=== PATIENT | male | born 1995 | race Caucasian/White ===

== ENCOUNTER 2018-02-21 19:35 | Emergency (ER) | payer MEDICARE, MEDICAID ==
[~2018-02-21] VITALS: Ht 188 cm; Wt 59.4 kg
[~2018-02-21 19:35] MED LIST: CLOZ100T PO; GABA300C PO; HALO5AMP2 IM
[2018-02-21 19:53] VITALS: BP 105/75
== END 2018-02-21 20:17 | disposition left against medical advice (07) ==
LOC: ER 19:36
DX: R44.3 Hallucinations, unspecified (principal); Z53.21 Procedure and treatment not carried out due to patient leaving prior to being seen by health care provider

== ENCOUNTER 2018-04-27 20:50 | Emergency (ER) | payer MEDICARE, MEDICAID ==
[~2018-04-27] VITALS: Ht 188 cm; Wt 73.0 kg
[~2018-04-27 20:50] MED LIST changes: +ONDA8TAB9 PO; +PANT-47 PO
[2018-04-27 20:55] VITALS: BP 135/91
[2018-04-27] MEDS ORDERED: LORazepam 2 mg/ml vial IM ONE ×2 (22:15→23:30)
== END 2018-04-27 23:37 | disposition home or self-care (01) ==
LOC: ER 20:51
DX: F20.9 Schizophrenia, unspecified (principal); F41.9 Anxiety disorder, unspecified; J45.909 Unspecified asthma, uncomplicated; F32.9 Major depressive disorder, single episode, unspecified; F12.90 Cannabis use, unspecified, uncomplicated; F17.210 Nicotine dependence, cigarettes, uncomplicated; Z98.890 Other specified postprocedural states; Z79.899 Other long term (current) drug therapy
CPT/HCPCS: 96372; 99284; J2060

== ENCOUNTER 2018-05-09 19:38 | Emergency (ER) | payer MEDICARE, MEDICAID ==
[~2018-05-09] VITALS: Ht 188 cm; Wt 59.7 kg
[2018-05-09 20:41] LABS: BASOPHILS % (AUTO) 0.6 % (0-1); EOSINOPHILS % (AUTO) 0.6 % (0-6); HEMATOCRIT 41.9 % (42.0-52.0); HEMOGLOBIN 14.2 g/dl (14.0-17.9); LYMPHOCYTES # (AUTO) 2.4 X10'3 (1.1-4.8); LYMPHOCYTES % (AUTO) 34.6 % (21-51); MEAN CORPUSCULAR HEMOGLOBIN 30.9 PG (27.0-31.0); MEAN CORPUSCULAR HGB CONC 33.9 % (33.0-36.5); MEAN CORPUSCULAR VOLUME 91.1 FL (78-98); MEAN PLATELET VOLUME 8.8 FL (7.4-10.4); MONOCYTES # (AUTO) 0.7 X10'3 (0-0.9); MONOCYTES % (AUTO) 10.1 % (2-12); NEUTROPHILS # (AUTO) 3.7 X10'3 (1.8-7.7); NEUTROPHILS % (AUTO) 54.1 % (42-75); PLATELET COUNT 252 X10'3 (140-440); RED CELL DISTRIBUTION WIDTH 13.2 % (11.5-14.5); WHITE BLOOD COUNT 6.9 X10'3 (4.5-11.0)
[2018-05-09 20:56] LABS: ALANINE AMINOTRANSFERASE 26 U/L (12-78); ALBUMIN 4.2 G/DL (3.4-5.0); ALBUMIN/GLOBULIN RATIO 1.4 (1.1-1.5); ALKALINE PHOSPHATASE 77 IU/L (46-116); ANION GAP 10 (8-16); ASPARTATE AMINO TRANSFERASE 22 U/L (10-37); BILIRUBIN,TOTAL 0.6 MG/DL (0.1-1.0); BLOOD UREA NITROGEN 18 MG/DL (7-18); BUN/CREATININE RATIO 20.5 (5.4-32.0); CALCIUM 9.2 MG/DL (8.5-10.1); CHLORIDE 104 MMOL/L (99-107); CREATININE 0.88 MG/DL (0.60-1.10); GLUCOSE 110 MG/DL (70-104); POTASSIUM 3.5 MMOL/L (3.5-5.1); SODIUM 141 MMOL/L (135-145); TOTAL CARBON DIOXIDE 26.9 MMOL/L (24-32); TOTAL PROTEIN 7.3 G/DL (6.4-8.2); eGFR > 90 ML/MIN
[2018-05-09 21:06] LABS: ETHANOL < 0.010 GM/DL (0.0-0.010)
[2018-05-09 21:14] LABS: ACETAMINOPHEN < 2.0 UG/ML (10-30)
[2018-05-09 22:34] LABS: URINE AMPHETAMINE SCREEN NEGATIVE (Neg); URINE BARBITUATE SCREEN NEGATIVE (Neg); URINE BENZODIAZEPINES SCREEN NEGATIVE (Neg); URINE CANNABINOID SCREEN POSITIVE (Neg); URINE COCAINE SCREEN NEGATIVE (Neg); URINE METHADONE SCREEN NEGATIVE (Neg); URINE OPIATE SCREEN NEGATIVE (Neg); URINE PHENCYCLIDINE SCREEN NEGATIVE (Neg)
[2018-05-09 22:37] LABS: COLOR,URINE YELLOW (Yellow); GLUCOSE, URINE NEGATIVE (Neg); KETONES,URINE NEGATIVE (Neg); LEUKOCYTE ESTERASE ,URINE NEGATIVE (Neg); NITRITES, URINE NEGATIVE (Neg); OCCULT BLOOD,URINE NEGATIVE (Neg); PROTEIN,URINE NEGATIVE (Neg); UROBILINOGEN,URINE 0.2 E.U/dL (0.2-1.0)
[2018-05-09 22:40] LABS: CLARITY,URINE CLEAR (Clear); UA COLLECTION TYPE VOIDED
[2018-05-10] MEDS: diphenhydrAMINE 25mg capsule PO PRN ×2 (09:26→17:06)
[2018-05-10] MEDS: haloperidol 5mg tablet PO PRN ×2 (09:26→17:06)
[2018-05-10] MEDS: LORazepam 1 MG tablet PO PRN ×2 (09:26→17:06)
[2018-05-10] MEDS ORDERED: PALI156D ×2 (17:58→18:02)
[2018-05-11] MEDS: diphenhydrAMINE 25mg capsule PO PRN (01:40)
[2018-05-11] MEDS: haloperidol 5mg tablet PO PRN (01:40)
[2018-05-11] MEDS: LORazepam 1 MG tablet PO PRN (01:41)
[2018-05-11 05:35] VITALS: BP 115/74
== END 2018-05-11 05:40 ==
LOC: ER 19:39
DX: F23 Brief psychotic disorder (principal); R45.1 Restlessness and agitation; J45.909 Unspecified asthma, uncomplicated; F41.9 Anxiety disorder, unspecified; F32.9 Major depressive disorder, single episode, unspecified; F17.200 Nicotine dependence, unspecified, uncomplicated; F12.90 Cannabis use, unspecified, uncomplicated; Z79.899 Other long term (current) drug therapy
CPT/HCPCS: 36415; 80053; 80178; 80305; 80320; 80329; 81003; 84443; 85025; 99285; Q0163

== ENCOUNTER 2018-07-12 11:46 | Emergency (ER) | payer MEDICARE, MEDICAID ==
[~2018-07-12 11:46] MED LIST changes: -CLOZ100T PO; -GABA300C PO; -HALO5AMP2 IM; -ONDA8TAB9 PO; +PALI156D; -PANT-47 PO
[2018-07-12] MEDS ORDERED: OLANZapine 5mg rapidly disint. tablet PO ONE (12:20)
[2018-07-12] MEDS ORDERED: LORazepam 1 MG tablet PO ONE (12:20)
[2018-07-12 12:46] LABS: BASOPHILS % (AUTO) 0.2 % (0-1); EOSINOPHILS # (AUTO) 0.1 X10'3 (0-0.9); EOSINOPHILS % (AUTO) 1.2 % (0-6); HEMATOCRIT 41.5 % (42.0-52.0); HEMOGLOBIN 14.4 g/dl (14.0-17.9); LYMPHOCYTES # (AUTO) 2.1 X10'3 (1.1-4.8); LYMPHOCYTES % (AUTO) 27.5 % (21-51); MEAN CORPUSCULAR HEMOGLOBIN 30.8 PG (27.0-31.0); MEAN CORPUSCULAR HGB CONC 34.6 % (33.0-36.5); MEAN CORPUSCULAR VOLUME 88.9 FL (78-98); MEAN PLATELET VOLUME 8.6 FL (7.4-10.4); MONOCYTES # (AUTO) 0.7 X10'3 (0-0.9); MONOCYTES % (AUTO) 9.4 % (2-12); NEUTROPHILS # (AUTO) 4.8 X10'3 (1.8-7.7); NEUTROPHILS % (AUTO) 61.7 % (42-75); PLATELET COUNT 262 X10'3 (140-440); RED BLOOD COUNT 4.67 X10'6 (4.70-6.10); WHITE BLOOD COUNT 7.7 X10'3 (4.5-11.0)
--- NOTE | 2018-07-12 12:55 | NUR ---
PT'S MOTHER SYD DUARTE
[2018-07-12 13:01] LABS: CLARITY,URINE CLEAR (Clear); COLOR,URINE STRAW (Yellow); GLUCOSE, URINE NEGATIVE (Neg); KETONES,URINE NEGATIVE (Neg); LEUKOCYTE ESTERASE ,URINE NEGATIVE (Neg); NITRITES, URINE NEGATIVE (Neg); OCCULT BLOOD,URINE NEGATIVE (Neg); PH,URINE 6.5 (4.8-8.0); PROTEIN,URINE NEGATIVE (Neg); UROBILINOGEN,URINE 0.2 E.U/dL (0.2-1.0)
[2018-07-12 13:02] LABS: UA COLLECTION TYPE CLN CATCH MIDSTREAM
[2018-07-12 13:11] LABS: URINE AMPHETAMINE SCREEN NEGATIVE (Neg); URINE BARBITUATE SCREEN NEGATIVE (Neg); URINE BENZODIAZEPINES SCREEN NEGATIVE (Neg); URINE CANNABINOID SCREEN NEGATIVE (Neg); URINE COCAINE SCREEN NEGATIVE (Neg); URINE METHADONE SCREEN NEGATIVE (Neg); URINE OPIATE SCREEN NEGATIVE (Neg); URINE PHENCYCLIDINE SCREEN NEGATIVE (Neg)
[2018-07-12 13:22] LABS: ALANINE AMINOTRANSFERASE 29 U/L (12-78); ALBUMIN/GLOBULIN RATIO 1.1 (1.1-1.5); ALKALINE PHOSPHATASE 93 IU/L (46-116); ANION GAP 14 (8-16); ASPARTATE AMINO TRANSFERASE 12 U/L (10-37); BILIRUBIN,TOTAL 0.3 MG/DL (0.1-1.0); CALCIUM 8.8 MG/DL (8.5-10.1); CHLORIDE 102 MMOL/L (99-107); CREATININE 0.69 MG/DL (0.60-1.10); ETHANOL < 0.010 GM/DL (0.0-0.010); GLUCOSE 95 MG/DL (70-104); POTASSIUM 4.1 MMOL/L (3.5-5.1); SODIUM 140 MMOL/L (135-145); TOTAL CARBON DIOXIDE 24.3 MMOL/L (24-32); TOTAL PROTEIN 7.5 G/DL (6.4-8.2); eGFR > 90 ML/MIN
[2018-07-12 13:28] LABS: BLOOD UREA NITROGEN 13 MG/DL (7-18); BUN/CREATININE RATIO 18.8 (5.4-32.0)
[2018-07-12] MEDS ORDERED: BENZ1TAB7 PO (14:07)
[2018-07-12] MEDS ORDERED: OLAN5TAB5 PO (14:07)
--- NOTE | 2018-07-12 15:12 | NUR ---
Patient is sleeping
[2018-07-12] MEDS ORDERED: PALI156D IM (15:39)
[2018-07-12] MEDS: benztropine 1mg tablet PO SCH (16:28)
[2018-07-12] MEDS ORDERED: ibuprofen tablet 400 MG TABLET PO ONE (17:15)
[2018-07-12] MEDS ORDERED: ibuprofen 200mg tablet PO ONE (17:20)
--- NOTE | 2018-07-12 18:05 | NUR ---
PACKET FAXED TO [facility] OFFICE AT THIS TIME
--- NOTE | 2018-07-12 18:23 | NUR ---
report given to YADIRA White
--- NOTE | 2018-07-12 18:27 | NUR ---
Assumed care, sitting up in bed eating supper, denies needs at this time.
--- NOTE | 2018-07-12 18:57 | NUR ---
Resting in bed, awaiting telepsych consult, denies needs.
--- NOTE | 2018-07-12 20:10 | NUR ---
Spoke with SOC, report endorsed
--- NOTE | 2018-07-12 20:15 | NUR ---
Telepsych consult started
--- NOTE | 2018-07-12 20:24 | NUR ---
PT IS FINISHED WITH TELE-PSYCH
[2018-07-12] MEDS: OLANZapine 5mg rapidly disint. tablet PO SCH (20:30)
--- NOTE | 2018-07-12 20:51 | NUR ---
Resting in bed, took medications as ordered without difficulties, no needs voiced, will continue to monitor.
--- NOTE | 2018-07-12 21:12 | NUR ---
Telepsych consult was was endorsed and provided to ERP.
--- NOTE | 2018-07-12 22:05 | NUR ---
Patient resting in bed with eyes closed, appearing to sleep without new issues or concerns noted. Will continue to monitor.
--- NOTE | 2018-07-12 23:02 | NUR ---
Resting in bed, eyes closed, appearing to sleep, will continue to monitor.
--- NOTE | 2018-07-13 | NUR ---
Resting in bed, eyes closed, appearing to sleep, will continue to monitor.
--- NOTE | 2018-07-13 01:12 | NUR ---
Sitting up at bedside, up to BRP, requesting something to eat and update on POC. Endorsed POC at this time and customary course of events. Provided patient with sandwich and carton of milk.
--- NOTE | 2018-07-13 02:06 | NUR ---
Resting in bed, eyes closed, appearing to sleep, will continue to monitor.
--- NOTE | 2018-07-13 03:11 | NUR ---
Resting in bed, eyes closed, appearing to sleep, will continue to monitor.
--- NOTE | 2018-07-13 04:05 | NUR ---
Resting in bed, appears to sleep. No new concerns. Will monitor.
--- NOTE | 2018-07-13 05:17 | NUR ---
Resting in bed, appears to sleep, easily aroused. No new concerns. Vitals taken. Will monitor.
[2018-07-13 05:30] VITALS: BP 103/71
[2018-07-13] MEDS ORDERED: LORazepam 1 MG tablet PO PRN (07:25)
[2018-07-13] MEDS ORDERED: LORazepam 2 mg/ml vial IV ONE (08:30)
[2018-07-13] MEDS: OLANZapine 5mg rapidly disint. tablet PO SCH (08:57)
[2018-07-13] MEDS: benztropine 1mg tablet PO SCH (08:57)
--- NOTE | 2018-07-13 09:00 | NUR ---
PT SPOKE TO HIS MOTHER ON PHONE AND REPORTED TO MOTHER HE DID NOT KNOW "WHAT WAS GOING ON" "WHY WASNT HE GONNA BE GOING HOME NOW" DESPITE HAVING STAFF EXPLAIN TO HIM RIGHT BEFORE THE PHONE CALL WHAT PLAN FOR PT IS AND THAT PT AWAITING PLACEMENT. SPOKE TO MOTHER AND INFORMED PT WAS UPDATED. PT BECAME UPSET THREW HIS SELF ON FLOOR AND STARTED HITTING THE GROUND WITH HIS FIST. PT ESCORTED BACK INTO BED BY STAFF AND SECURITY. MD ALMANZA UPDATED AND RECEIVED ATIVAN 2MG IM
--- NOTE | 2018-07-13 10:10 | NUR ---
pt is in bed sleeping on left side, no s/s of distress spontaneous, regular breathing
--- NOTE | 2018-07-13 12:03 | NUR ---
PT IS IN BED, RIGHT SIDE, SLEEPING, NO S/S OF DISTRESS, SPONTAINEOUS, REGULAR BREATHING
--- NOTE | 2018-07-13 14:36 | NUR ---
GAVE REPORT TO NURSE PRINCE AT [facility] FOR POSSIBLE PLACEMENT
[2018-07-14] MEDS ORDERED: paliperidone palmitate 156 mg/ml inj.**IM only IM SCH (08:00)
== END 2018-07-13 15:40 ==
LOC: ER 11:46
DX: F32.9 Major depressive disorder, single episode, unspecified (principal); F29 Unspecified psychosis not due to a substance or known physiological condition; J45.909 Unspecified asthma, uncomplicated; F41.9 Anxiety disorder, unspecified; F20.9 Schizophrenia, unspecified; F12.90 Cannabis use, unspecified, uncomplicated; F17.210 Nicotine dependence, cigarettes, uncomplicated; Z98.890 Other specified postprocedural states; Z79.899 Other long term (current) drug therapy
CPT/HCPCS: 36415; 80053; 80305; 80320; 81003; 85025; 96374; 99285; J2060

== ENCOUNTER 2019-05-18 20:18 | Emergency (ER) | payer MEDICARE, MEDICAID ==
[~2019-05-18] VITALS: Ht 188 cm; Wt 75.9 kg
[~2019-05-18 20:18] MED LIST changes: +BENZ1TAB7 PO; +OLAN5TAB5 PO; -PALI156D; +PALI156D IM
--- NOTE | 2019-05-18 20:36 | NUR ---
PT TAKEN FROM TRIAGE STRAIGHT BACK TO ROOM 20 IN OVERFLOW FOR EVALUATION
--- NOTE | 2019-05-18 21:05 | NUR ---
PT UP OUT OF BED TO BATHROOM . VOIDED ABOUT 30 ML OF YELLOW URINE SENT TO LAB
--- NOTE | 2019-05-18 21:11 | NUR ---
BT BIB HIS GRANDMOTHER, HE HAS NOT SLEPT FOR APPROX 1 WEEK, RECENT CHANGES TO HIS MEDICATIONS ADDED SEROQUEL. AND LITHIUM, IS SEEN AT [facility], HAS HX OF SCHITZOPHRENIA, AND IS PARANOID, HE STATES THAT HE NEED QUIET AND TO NOT BE AROUND NOISE OR PEOPLE, HE NEEDS TO SMOKE HE HAS TO BE SUCKING ON SOMETHING. HE IS SEEING COLORS, AND WAR SOMETHING LIKE VIDEO GAMES, HE IS UNABLE TO PLAY HIS VIDEO GAMES HE CANNOT FOCUS ON THEM, HE IS HEARING THINGS THAT HE CANNOT DEFINE TO ME, SOME FOR GOOD, SOME ARE ANGRY, HIS GRANDMOTHER IS HERE WITH HIM, SHE STATES THAT HE HAS BEEN GETTING INCREASINGLY VIOLENT AND THAT THEY HAVE MOVED DOWNTOWN AND THE NOISE IS TOO MUCH FOR HIM, HE POUNDS ON THE ARI[place] OF THEIR APPARTMENT AND THE UPSTA[place] NEIGHBORS POUMD ON THE FLOOR IN RESPONSE HIS MOTHER IS A SOURCE OF ANXIETY FOR HIM, SHE CAME TO THE APPARTMENT TO HELP BUT AMPLIFIED HIS ANGER AND WAS ASKED TO LEAVE
--- NOTE | 2019-05-18 21:18 | NUR ---
PT LAYING LEFT SIDE IN BED. HOB ELEVATD 30 DEGREES PT SAT UP SMILING. LOOKING OVER AT NURSES STATION . ASKED PT IF HE WAS OK , PT REPLIED HE WAS " FINE , I AM JUST DREAMING, RIGHT NOW ITS A BRIGHT DREAM, BUT THAT COULD CHANGE, ILL LET YOU KNOW. "
--- NOTE | 2019-05-18 21:25 | NUR ---
PT GRANDMA AT BEDSIDE WILL BE TAKING HOME PT MEDS . GRANDMA: HUMBERTO DHILLONUGOÁngel PT MOTHER : SYD DUARTE GRANDSCOTT SAID HER GOODBYES TO PT AND LEFT UNIT FOR THE NIGHT
--- NOTE | 2019-05-18 21:32 | NUR ---
PT CALL ME TO BEDSIDE. STATED THATN HE DOES HAVE SUCICIDAL THOUGHTS. HE CURRENTLY DENIES HAVING A PALN OR MEANS, BUT DOES STASTE THAT HE FEELS LIKE HE WILL FALL.
--- NOTE | 2019-05-18 21:34 | NUR ---
PT NOW LYING ON HIS RIGHT SIDE. BLANKETS UP TO HIS SHOULDERS , UNLABORED, STATED THAT HIS HS MEDS HELP HIS THOUGHTS BUT NOT HIS SLEEP.
[2019-05-18] MEDS ORDERED: QUET-1 PO (21:38)
[2019-05-18] MEDS ORDERED: BENZ2TAB7 PO (21:48)
[2019-05-18] MEDS ORDERED: LITH450T2 PO (21:51)
[2019-05-18] MEDS ORDERED: PRAZ1CAP5 PO (21:53)
--- NOTE | 2019-05-18 21:55 | NUR ---
LAB TO SEE PT FOR BLOOD DRAW
[2019-05-18 22:05] LABS: CLARITY,URINE SLIGHTLY CLOUDY (Clear); COLOR,URINE YELLOW (Yellow); GLUCOSE, URINE NEGATIVE (Neg); KETONES,URINE NEGATIVE (Neg); LEUKOCYTE ESTERASE ,URINE TRACE (Neg); NITRITES, URINE NEGATIVE (Neg); OCCULT BLOOD,URINE NEGATIVE (Neg); PROTEIN,URINE NEGATIVE (Neg); UROBILINOGEN,URINE 0.2 E.U/dL (0.2-1.0)
[2019-05-18 22:09] LABS: UA COLLECTION TYPE CLN CATCH MIDSTREAM
[2019-05-18 22:11] LABS: BASOPHILS # (AUTO) 0.1 X10'3 (0-0.2); BASOPHILS % (AUTO) 0.9 % (0-1); EOSINOPHILS # (AUTO) 0.2 X10'3 (0-0.9); EOSINOPHILS % (AUTO) 2.2 % (0-6); HEMATOCRIT 41.7 % (42.0-52.0); HEMOGLOBIN 14.3 g/dl (14.0-17.9); LYMPHOCYTES # (AUTO) 3.7 X10'3 (1.1-4.8); LYMPHOCYTES % (AUTO) 47.3 % (21-51); MEAN CORPUSCULAR HEMOGLOBIN 31.4 PG (27.0-31.0); MEAN CORPUSCULAR HGB CONC 34.3 g/dL (33.0-36.5); MEAN CORPUSCULAR VOLUME 91.4 FL (78-98); MEAN PLATELET VOLUME 9.1 FL (7.4-10.4); MONOCYTES # (AUTO) 0.7 X10'3 (0-0.9); NEUTROPHILS # (AUTO) 3.1 X10'3 (1.8-7.7); NEUTROPHILS % (AUTO) 40.6 % (42-75); PLATELET COUNT 243 X10'3 (140-440); RED BLOOD COUNT 4.56 X10'6 (4.70-6.10); RED CELL DISTRIBUTION WIDTH 12.7 % (11.5-14.5); WHITE BLOOD COUNT 7.7 X10'3 (4.5-11.0)
[2019-05-18 22:15] LABS: SQUAMOUS EPITHELIAL CELL,UR MANY /LPF (FEW)
--- NOTE | 2019-05-18 22:15 | NUR ---
PT APPEARS TO BE SLEEPING ON RIGHT SIDE. HEAD OF BED ELEVATED 30 DEGREES RESPIRATIONS UNLABORED . MED REC SIGNED BY AND FAXED TO [facility]
[2019-05-18 22:16] LABS: BACTERIA,URINE NONE SEEN /HPF (Neg); RBC,URINE NONE SEEN /HPF (0-2)
[2019-05-18 22:20] LABS: URINE AMPHETAMINE SCREEN NEGATIVE (Neg); URINE BARBITUATE SCREEN NEGATIVE (Neg); URINE BENZODIAZEPINES SCREEN NEGATIVE (Neg); URINE CANNABINOID SCREEN POSITIVE (Neg); URINE COCAINE SCREEN NEGATIVE (Neg); URINE METHADONE SCREEN NEGATIVE (Neg); URINE OPIATE SCREEN NEGATIVE (Neg); URINE PHENCYCLIDINE SCREEN NEGATIVE (Neg)
[2019-05-18 22:24] LABS: ALANINE AMINOTRANSFERASE 26 U/L (12-78); ALBUMIN 4.1 G/DL (3.4-5.0); ALBUMIN/GLOBULIN RATIO 1.2 (1.1-1.5); ALKALINE PHOSPHATASE 81 IU/L (46-116); ANION GAP 9 (8-16); ASPARTATE AMINO TRANSFERASE 15 U/L (10-37); BILIRUBIN,TOTAL 0.5 MG/DL (0.1-1.0); BLOOD UREA NITROGEN 11 MG/DL (7-18); BUN/CREATININE RATIO 13.4 (5.4-32.0); CALCIUM 8.8 MG/DL (8.5-10.1); CHLORIDE 105 MMOL/L (99-107); CREATININE 0.82 MG/DL (0.60-1.10); GLUCOSE 102 MG/DL (70-104); POTASSIUM 4.2 MMOL/L (3.5-5.1); SODIUM 140 MMOL/L (135-145); TOTAL CARBON DIOXIDE 26.5 MMOL/L (24-32); TOTAL PROTEIN 7.4 G/DL (6.4-8.2); eGFR > 90 ML/MIN
[2019-05-18 22:33] LABS: ACETAMINOPHEN < 2.0 UG/ML (10-30); ETHANOL < 0.010 GM/DL (0.0-0.010)
--- NOTE | 2019-05-18 23:20 | NUR ---
pt sleeping peacfully on back self positioned unlabored / content at this time
--- NOTE | 2019-05-19 00:20 | NUR ---
PT SLEEPING ON BACK HOB SLIGHTLY ELEVATED. LIGHTS DIMMED UNLOBORED RESP AT THIS TIME
--- NOTE | 2019-05-19 01:00 | NUR ---
PT SLEEPING COMFORTABLY ON RIGHT SIDE UNLABORED RESPIRATIONS
--- NOTE | 2019-05-19 01:57 | NUR ---
PT SLEEPING COMFORTABLY ON BACK . NO OUT BURSTS . PT REPOSITIONS SELF. INDEPENDENTLY.
--- NOTE | 2019-05-19 03:06 | NUR ---
PT AWOKE BRIEFLY . REASSURED PT HE WAS SAFE AND TO TRY AND GO BACK TO SLEEP . PT REPOSITIONED HIMSELF TO HIS RIGHT SIDE AND INDEPENDENTLY FELL BACK TO SLEEP
--- NOTE | 2019-05-19 03:41 | NUR ---
PT AWOKE , ASKING FOR A WARM BLANKET. UPDATED PLAN OF CARE AND OFFERED PT 2 WARM BLANKETS. PT REPORTS THAT HE WOULD LIKE TO CALL HIS GRNADMA IN THE MORNING ONCE HE AWAKES FOR THE DAY, BUT DOESNT HAVE HER PHONE NUMBER. REASSURED PT THAT HE WOULD BE ABLE TO PHONE HIS GRANDMA IN THE AM AND THAT HER PHONE NUMBER IS IN THE CHART WELL AT THE BEDSIDE ON A POST A NOTE FOR HIS REFERNACE. PT LAID BACK IN BED , AND IS CURRENTLY RESTING WITH HIS EYES OPEN , UNLABORED RESP RATE, SELF POSTIONING HIMSELF IN BED INDEPENDENTLY.
--- NOTE | 2019-05-19 03:45 | NUR ---
PT INDEPENDENTLY ROLLED OVER TO THE PRONE POSITION AND IS MOVING IN AN UP AND DOWN MOTION. INDEPENDENTLY TURNS HIS HEAD FROM SIDE TO SIDE , AND SEEMS TO BE NESTLING IN THE BLANKETS FOR ABOUT 5 MINS
--- NOTE | 2019-05-19 03:53 | NUR ---
PT NOW CURRENTLY LYING ON HIS LEFT SIDE . NOT MOVING OR MOTIONING BEFORE . UNLABORED, RESPIRATIONS AT 18 PER MIN .
--- NOTE | 2019-05-19 05:05 | NUR ---
PT SLEEPING PEACFULLY ON LEFT SIDE
--- NOTE | 2019-05-19 05:37 | NUR ---
PT TURNED OVER TO HIS RIGHT SIDE. DENIES ANY DISCOMFORT OR NEEDS AT THIS TIME . ALL VSS
--- NOTE | 2019-05-19 06:07 | NUR ---
PT AWAKE ASKING TO CALL HIS GRANDMA . PHONED PT SCOTT AT [phone] PHONE WENT STRIGHT TO VOICE MAIL. PT REPORTS FEELING "PARANOID , ABOUT NOT GETTING TO TALK TO HER" REASSURED PT THAT WE WILL CONTINE TO CALL GRANDMA THE MORNING MOVES ON
--- NOTE | 2019-05-19 06:40 | NUR ---
Patient sleeping on left side, no distress observed. Continue to monitor.
[2019-05-19] MEDS ORDERED: diphenhydrAMINE 50 mg/ml inj IM ONE (08:15)
[2019-05-19] MEDS ORDERED: LORazepam 2 mg/ml vial IM ONE (08:15)
[2019-05-19] MEDS ORDERED: haloperidol lactate 5mg/ml inj IM ONE (08:15)
--- NOTE | 2019-05-19 08:20 | NUR ---
0750 RN attempting to get a hold of patient's grandmother by phone. RN left a message to call back. RN advised patient and patient is in front of nurse at nurses station and drops to the floor and starts rocking back and forth. Tech asks patient to get up and go to his bed. After a few minutes patient starts punching his bed and screaming. RN calls for Security. 0810 RN gave patient I.M. injections, security at side. Continue to monitor.
--- NOTE | 2019-05-19 10:05 | NUR ---
Patient sleeping. No distress observed. Continue to monitor.
--- NOTE | 2019-05-19 11:16 | NUR ---
Patient up and asking to be seen by [facility]. RN stated Sherman will see him sometime today. Patient appears inpatient. Continue to monitor.
--- NOTE | 2019-05-19 12:49 | NUR ---
Emma, Grandmother's phone number.
--- NOTE | 2019-05-19 14:25 | NUR ---
Patient sleeping prone. No distress observed. Continue to monitor.
[2019-05-19] MEDS ORDERED: nicotine 14mg patch - 24hr TD ONE (14:30)
--- NOTE | 2019-05-19 15:20 | NUR ---
Patient at nurses station to call her grandmother. Continue to monitor.
[2019-05-19] MEDS ORDERED: OLANZapine 5mg rapidly disint. tablet PO ONE (16:20)
[2019-05-19] MEDS ORDERED: OLANZapine 5mg rapidly disint. tablet PO PRN (16:20)
--- NOTE | 2019-05-19 17:01 | NUR ---
RN gave patient Zyprexa for agitation. Patient is still awaiting [facility]. Patient calm at the moment. Continue to monitor.
[2019-05-19 17:36] VITALS: BP 116/78
--- NOTE | 2019-05-19 17:54 | NUR ---
Patient being evaluated by Alex. DAVID
[2019-05-19] MEDS ORDERED: quetiapine 100mg tablet PO SCH (21:00)
[2019-05-19] MEDS ORDERED: prazosin 1mg capsule PO SCH (21:00)
[2019-05-19] MEDS ORDERED: benztropine 1mg tablet PO SCH (21:00)
[2019-05-19] MEDS ORDERED: lithium carbonate 450mg CR tablet PO SCH (21:00)
[2019-05-20] MEDS ORDERED: nicotine 14mg patch - 24hr TD SCH (08:00)
== END 2019-05-19 19:12 | disposition home or self-care (01) ==
LOC: ER 20:19
DX: R45.851 Suicidal ideations (principal); F20.9 Schizophrenia, unspecified; R06.02 Shortness of breath; J45.909 Unspecified asthma, uncomplicated; F41.9 Anxiety disorder, unspecified; F17.200 Nicotine dependence, unspecified, uncomplicated; F12.90 Cannabis use, unspecified, uncomplicated; Z98.890 Other specified postprocedural states; Z79.899 Other long term (current) drug therapy
CPT/HCPCS: 36415; 80053; 80178; 80305; 80320; 80329; 81001; 84443; 85025; 96372; 99284; J1200; J1630; J2060

== ENCOUNTER 2019-05-29 16:38 | Emergency (ER) | payer MEDICARE, MEDICAID ==
[~2019-05-29] VITALS: Ht 188 cm; Wt 75.9 kg
[~2019-05-29 16:38] MED LIST changes: -BENZ1TAB7 PO; +BENZ2TAB7 PO; +LITH450T2 PO; -OLAN5TAB5 PO; -PALI156D IM; +PRAZ1CAP5 PO; +QUET-1 PO
[2019-05-29] MEDS ORDERED: normal saline 1000ML IV soln IVB ONE (16:50)
--- NOTE | 2019-05-29 16:56 | NUR ---
PT IS A POOR HISTORIAN. HIS STAEMENTS CHANGE CONTINOUSLY/\.
[2019-05-29] MEDS ORDERED: LORazepam 2 mg/ml vial IV ONE ×2 (17:05→19:35)
[2019-05-29 17:14] LABS: CLARITY,URINE CLEAR (Clear); COLOR,URINE STRAW (Yellow); GLUCOSE, URINE NEGATIVE (Neg); KETONES,URINE NEGATIVE (Neg); LEUKOCYTE ESTERASE ,URINE NEGATIVE (Neg); NITRITES, URINE NEGATIVE (Neg); OCCULT BLOOD,URINE NEGATIVE (Neg); PROTEIN,URINE NEGATIVE (Neg); UA COLLECTION TYPE VOIDED; UROBILINOGEN,URINE 0.2 E.U/dL (0.2-1.0)
[2019-05-29 17:31] LABS: URINE AMPHETAMINE SCREEN NEGATIVE (Neg); URINE BARBITUATE SCREEN NEGATIVE (Neg); URINE BENZODIAZEPINES SCREEN NEGATIVE (Neg); URINE CANNABINOID SCREEN POSITIVE (Neg); URINE COCAINE SCREEN NEGATIVE (Neg); URINE METHADONE SCREEN NEGATIVE (Neg); URINE OPIATE SCREEN NEGATIVE (Neg); URINE PHENCYCLIDINE SCREEN NEGATIVE (Neg)
[2019-05-29 17:41] LABS: BASOPHILS # (AUTO) 0.1 X10'3 (0-0.2); BASOPHILS % (AUTO) 0.9 % (0-1); EOSINOPHILS % (AUTO) 0.4 % (0-6); HEMATOCRIT 42.7 % (42.0-52.0); HEMOGLOBIN 15.2 g/dl (14.0-17.9); LYMPHOCYTES # (AUTO) 2.3 X10'3 (1.1-4.8); LYMPHOCYTES % (AUTO) 34.7 % (21-51); MEAN CORPUSCULAR HEMOGLOBIN 31.9 PG (27.0-31.0); MEAN CORPUSCULAR HGB CONC 35.7 g/dL (33.0-36.5); MEAN CORPUSCULAR VOLUME 89.4 FL (78-98); MONOCYTES # (AUTO) 0.5 X10'3 (0-0.9); MONOCYTES % (AUTO) 7.7 % (2-12); NEUTROPHILS # (AUTO) 3.8 X10'3 (1.8-7.7); NEUTROPHILS % (AUTO) 56.3 % (42-75); PLATELET COUNT 263 X10'3 (140-440); RED BLOOD COUNT 4.78 X10'6 (4.70-6.10); RED CELL DISTRIBUTION WIDTH 12.4 % (11.5-14.5); WHITE BLOOD COUNT 6.7 X10'3 (4.5-11.0)
[2019-05-29 17:47] LABS: ALANINE AMINOTRANSFERASE 25 U/L (12-78); ALBUMIN 4.4 G/DL (3.4-5.0); ALBUMIN/GLOBULIN RATIO 1.3 (1.1-1.5); ALKALINE PHOSPHATASE 97 IU/L (46-116); ANION GAP 11 (8-16); ASPARTATE AMINO TRANSFERASE 18 U/L (10-37); BILIRUBIN,TOTAL 0.3 MG/DL (0.1-1.0); BLOOD UREA NITROGEN 8 MG/DL (7-18); BUN/CREATININE RATIO 9.2 (5.4-32.0); CALCIUM 9.3 MG/DL (8.5-10.1); CHLORIDE 104 MMOL/L (99-107); CREATININE 0.87 MG/DL (0.60-1.10); GLUCOSE 102 MG/DL (70-104); POTASSIUM 3.3 MMOL/L (3.5-5.1); SODIUM 139 MMOL/L (135-145); TOTAL CARBON DIOXIDE 23.9 MMOL/L (24-32); TOTAL PROTEIN 7.7 G/DL (6.4-8.2); eGFR > 90 ML/MIN
[2019-05-29 17:57] LABS: ETHANOL < 0.010 GM/DL (0.0-0.010)
[2019-05-29 18:05] VITALS: BP 120/75
--- NOTE | 2019-05-29 19:32 | NUR ---
PATIENT PEFORMED A RIDGID SHAKING MOVEMENT WHILE YELLING. AFTER COMPLETION OF HIS AGITATION HE SCREAMED, "THIS IS IS MY BODY".
[2019-05-29] MEDS ORDERED: haloperidol lactate 5mg/ml inj IM ONE (19:35)
[2019-05-29] MEDS ORDERED: diphenhydrAMINE 50 mg/ml inj IV ONE (19:35)
== END 2019-05-29 22:16 ==
LOC: ER 16:38
DX: F32.9 Major depressive disorder, single episode, unspecified (principal); F41.9 Anxiety disorder, unspecified; F20.9 Schizophrenia, unspecified; F22 Delusional disorders; J45.909 Unspecified asthma, uncomplicated; F12.90 Cannabis use, unspecified, uncomplicated; F15.90 Other stimulant use, unspecified, uncomplicated; Z98.890 Other specified postprocedural states
CPT/HCPCS: 36415; 80053; 80305; 80320; 81003; 84443; 85025; 96374; 99285; J2060; J7030; 99284

== ENCOUNTER 2019-08-11 08:50 | Emergency (ER) | payer MEDICARE, MEDICAID ==
[~2019-08-11] VITALS: Ht 177.8 cm; Wt 80.0 kg
[2019-08-11 08:52] VITALS: BP 131/71
[2019-08-11] MEDS ORDERED: ketorolac trometh inj. 60 MG/2 ML VIAL IM ONE (09:15)
[2019-08-11] MEDS ORDERED: acetaminophen 325mg tablet PO ONE (09:15)
[2019-08-11] MEDS ORDERED: ondansetron 4mg rapidly disintigrating tab PO ONE (09:15)
[2019-08-11] MEDS ORDERED: MELO-100 PO (09:22)
[2019-08-11] MEDS ORDERED: ACET-812 PO (09:22)
== END 2019-08-11 09:40 | disposition home or self-care (01) ==
LOC: ER 08:51
DX: G89.29 Other chronic pain (principal); M54.2 Cervicalgia; G44.85 Primary stabbing headache; J45.909 Unspecified asthma, uncomplicated; F41.9 Anxiety disorder, unspecified; F20.9 Schizophrenia, unspecified; F32.9 Major depressive disorder, single episode, unspecified; F15.90 Other stimulant use, unspecified, uncomplicated; F12.90 Cannabis use, unspecified, uncomplicated; Z91.14 Patient's other noncompliance with medication regimen; Z79.899 Other long term (current) drug therapy
CPT/HCPCS: 96372; 99283; J1885

== ENCOUNTER 2019-09-11 15:09 | Emergency (ER) | payer MEDICARE, MEDICAID ==
[~2019-09-11] VITALS: Ht 188 cm; Wt 77.3 kg
[~2019-09-11 15:09] MED LIST changes: +ACET-812 PO; +MELO-100 PO
[2019-09-11 16:00] VITALS: BP 126/50
[2019-09-11] MEDS ORDERED: paliperidone palmitate 156 mg/ml inj.**IM only IM ONE (16:00)
--- NOTE | 2019-09-11 16:25 | NUR ---
Called pharmacy waiting for medication to be made
[2019-09-11] MEDS ORDERED: paliperidone palmitate inj 234 MG/1.5 ML SYRINGE IM ONE (16:30)
== END 2019-09-11 17:30 | disposition home or self-care (01) ==
LOC: ER 15:09
DX: F31.9 Bipolar disorder, unspecified (principal); J45.909 Unspecified asthma, uncomplicated; F41.9 Anxiety disorder, unspecified; F20.9 Schizophrenia, unspecified; F12.90 Cannabis use, unspecified, uncomplicated; F15.90 Other stimulant use, unspecified, uncomplicated; Z79.899 Other long term (current) drug therapy
CPT/HCPCS: 96372; 99283